=== PATIENT | female | born 1945 | race Caucasian/White ===

== ENCOUNTER → 2017-02-22 | Outpatient (CLI) | payer OTHER | LOC: BMCIMAGING 09:07 | PROVIDERS: ATTEND Internal Medicine | DX: R05 Cough (principal) ==

== ENCOUNTER → 2017-03-10 | Outpatient (CLI) | payer OTHER | LOC: BMCIMAGING 11:18 | PROVIDERS: ATTEND Internal Medicine | DX: Z13.820 Encounter for screening for osteoporosis (principal); M85.80 Other specified disorders of bone density and structure, unspecified site ==

== ENCOUNTER → 2017-03-29 | Outpatient (CLI) | payer OTHER | LOC: BMCIMAGING 08:02 | PROVIDERS: ATTEND Internal Medicine | DX: Z12.31 Encounter for screening mammogram for malignant neoplasm of breast (principal) | CPT/HCPCS: G0202 ==

== ENCOUNTER → 2017-04-06 | Outpatient (CLI) | payer OTHER | LOC: BMCIMAGING 09:47 | PROVIDERS: ATTEND Internal Medicine | DX: Z12.39 Encounter for other screening for malignant neoplasm of breast (principal); R92.8 Other abnormal and inconclusive findings on diagnostic imaging of breast | CPT/HCPCS: G0206 ==

== ENCOUNTER 2018-03-29 18:41 | Emergency (ER) | payer OTHER ==
--- NOTE | 2018-03-29 21:09 | EDPHY ---
H & P Stated Complaint: CP, dizzy Time Seen by Provider: 03/29/18 21:31 HPI/ROS: CHIEF COMPLAINT: Lightheadedness, chest tightness. HISTORY OF PRESENT ILLNESS: This patient is a 73 year old female complaining of lightheadedness and chest tightness. Her symptoms began around 15:30 today. She felt lightheaded and nauseous, and noted some mild chest tightness. She denies chest pressure or pain. She has had vertigo in the past but states her symptoms today are not similar to that and denies any room-spinning sensation. The patient has been recording her blood pressure at home, and noted it was around 160 systolic, which is unusually high for her. She went to urgent care, and was referred to the emergency department for further evaluation. She is concerned due to family history of NE in her father when he was in his 40s. Currently, she states "my head just seems kind of spacey" but denies other symptoms. The patient denies numbness, weakness, or paresthesias in her extremities. No chest pain or dyspnea with exertion. No vomiting, diarrhea, hematuria, dysuria, or urinary frequency. She denies personal history of diabetes, hypertension, or cardiac history. REVIEW OF SYSTEMS: A comprehensive 10 point review of systems is otherwise negative aside from elements mentioned in the history of present illness. Source: Patient - Personal History Current Tetanus/Diphtheria Vaccine: Yes Current Tetanus Diphtheria and Acellular Pertussis (TDAP): Yes - Medical/Surgical History PMH: Asthma (Ventolin). Environmental allergies. Hx Asthma: No Hx Chronic Respiratory Disease: No Hx Diabetes: No Hx Cardiac Disease: No Hx Renal Disease: No Hx Cirrhosis: No Hx Alcoholism: No Hx HIV/AIDS: No Hx Splenectomy or Spleen Trauma: No Other PMH: asthma, foot surgery - Social History Smoking Status: Never smoked Additional Social History: . at bedside. PCP Dr. Sarah Calvo. - Physical Exam Exam: General Appearance: Alert, no distress Eyes: Pupils equal and round no pallor or injection ENT, Mouth: Mucous membranes moist Respiratory: There are no retractions, lungs are clear to auscultation Cardiovascular: Regular rate and rhythm Gastrointestinal: Abdomen is soft and non tender, no masses, bowel sounds normal Neurological: A&O, normal motor function, normal sensory exam, normal cranial nerves Skin: Warm and dry, no rashes Musculoskeletal: Neck is supple non tender Extremities: Symmetrical, full range of motion Psychiatric: Patient is oriented X 3, there is no agitation Constitutional: Initial Vital Signs Temperature (C) 36.7 C 03/29/18 18:55 Heart Rate 63 03/29/18 18:55 Respiratory Rate 16 03/29/18 18:55 Blood Pressure 192/114 H 03/29/18 18:55 O2 Sat (%) 96 03/29/18 18:55 O2 Delivery Mode Room Air Allergies/Adverse Reactions: aspirin Allergy (Verified 03/29/18 20:57) NSAIDS (Non-Steroidal Anti-Inflamma Allergy (Verified 03/29/18 20:57) Sulfa (Sulfonamide Antibiotics) Allergy (Verified 03/29/18 20:57) TERRAMISITIN Allergy (Uncoded 03/29/18 20:57) Home Medications: Medication Instructions Recorded Albuterol Sulfate [Albuterol HFA 2 puffs IH Q4-6PRN PRN #1 inh 03/16/11 17g] Albuterol [Ventolin Hfa] 1 - 2 puffs IH Q4PRN PRN 03/16/11 Azithromycin [Zpack 250 mg] 250 mg PO DAILY #4 tab 03/16/11 Codeine Phosphate/Guaifenesin 5 - 10 ml PO Q4-6PRN PRN #118 ml 03/16/11 [Guaiatussin Ac Liquid] Medical Decision Making - Diagnostics EKG Interpretation: Complete interpretation has been separately recorded in the [facility] archive. Summary impression: Sinus rhythm, rate 54. ED Course/Re-evaluation: 73 year old female presents with lightheadedness and associated mild chest tightness onset three hours ago. Plan for EKG, labs including CBC, chemistries, troponin. Plan to administer 1L IV NS. 19:37 Troponin 0.01 EKG shows sinus rhythm. Laboratory studies reviewed. The patient was noted to have a slightly elevated BUN, normal creatinine, normal hemoglobin and hematocrit. 21:30 Patient's cardiac workup is negative today, no evidence for acute coronary syndrome. Her neurologic examination is normal. The patient was noted to have mild hypertension in the emergency department with systolic blood pressure in the 160/90 range. The patient was ambulatory after receiving IV fluids and subjectively field much better. Plan to discharge home in good condition. She will follow up with her primary care provider for a blood pressure recheck in the next 1-2 days. Return precautions discussed. She is comfortable with this plan. The patient has been discharged home with customary aftercare instructions and return precautions. She has had no history of exertional chest pain or shortness of breath. She does have a family history of heart disease but no other cardiac risk factors. I reviewed her outpatient blood pressure log and see no evidence of recent episodes of significant hypertension. I do not feel that medication should be started for high blood pressure at this point time. Differential Diagnosis: Differential diagnosis considered includes acute coronary syndrome, arrhythmia, dehydration, metabolic abnormality, renal failure Departure - Departure Disposition: Home, Routine, Self-Care Clinical Impression: Dizziness Hypertension Qualifiers: Hypertension type: unspecified Qualified Code(s): I10 - Essential (primary) hypertension Condition: Good Instructions: Chronic Hypertension (ED) Additional Instructions: 1. Please schedule a follow-up appointment with your primary care provider for a blood pressure recheck in the next 1-2 days. 2. Return to the ED for any chest pain, difficulty breathing, severe headache, focal numbness, focal weakness or other concerns. 3. Your EKG and cardiac testing today demonstrated no significant abnormality. Your laboratory studies did suggest the possibility of mild dehydration contributing to your symptoms today. Referrals: Sarah Calvo MD [place] [place] - As per Instructions Report Scribed for: Trae Villareal Report Scribed by: Elizabeth Cardona Date of Report: 03/29/18 Time of Report: 21:09
[2018-03-29 21:36] VITALS: BP 128/78
--- NOTE | 2018-03-30 09:51 | CPEKG ---
Heart Rate: 54 RR Interval: 1111 P-R Interval: 160 QRSD Interval: 94 QT Interval: 468 QTC Interval: 444 P Ass[place]oman: 38 QRS Assawoman: 18 T Wave Assawoman: 44 EKG Severity - NORMAL ECG - EKG Impression: SINUS RHYTHM Electronically Signed By: Deo Lubin 30-Mar-2018 11:30:14
== END 2018-03-29 19:35 | disposition home or self-care (01) ==
DX: R42 Dizziness and giddiness (principal); I10 Essential (primary) hypertension; J45.909 Unspecified asthma, uncomplicated
CPT/HCPCS: 82435-PO; 82565-PO; 82947-PO; 84132-PO; 84295-PO; 84484-PO; 84520-PO; 85014-PO

== ENCOUNTER → 2018-10-14 | Outpatient (CLI) | payer OTHER | LOC: CIMAGING 08:23 | PROVIDERS: ATTEND Physician Assistant | DX: Z96.642 Presence of left artificial hip joint (principal) | CPT/HCPCS: 73700-PO ==